=== PATIENT | male | born 1985 | race Two or more races ===

== ENCOUNTER 2016-09-26 16:29 | Emergency (ER) | payer OTHER ==
[2016-09-26 16:44] VITALS: BP 205/142; PULSE 96; RESP 16; TEMP 98.1; O2SAT 92
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
--- NOTE | 2016-09-26 19:12 | DX ---
Left hip, 2 views Clinical indication: Trauma. Findings: Bony alignment of the pelvis and hips is normal. Joint space are well maintained. Lower kellie mbar spine is grossly unremarkable. No evidence of fracture or dislocation. Impression: Normal 2 views left hip.
--- NOTE | 2016-09-27 10:35 | DX ---
Cervical Spine (AP and Lateral) Clinical Indications: Trauma. Findings: Alignment is normal and there are no fractures. The intervertebral disks have normal heig ht and the cervical curvature is normal. There are no significant osteophytes. The bony spinal canal is normal in size. Impression: Normal.
== END 2016-09-26 18:57 | disposition home or self-care (01) ==
LOC: CED 16:29
DX: S16.1XXA Strain of muscle, fascia and tendon at neck level, initial encounter (principal); S70.02XA Contusion of left hip, initial encounter; R07.9 Chest pain, unspecified; V86.59XA Driver of other special all-terrain or other off-road motor vehicle injured in nontraffic accident, initial encounter
CPT/HCPCS: 71020-PO; 72040-PO; 73502-PO; 99214-PO; G0463-PO

== ENCOUNTER 2016-11-29 16:07 | Emergency (ER) | payer OTHER ==
[2016-11-29 16:19] VITALS: BP 173/116; PULSE 105; RESP 20; TEMP 97.7
[2016-11-29] MEDS ORDERED: ONDANSETRON DISINTEGRATING 4 MG TAB PO ONE (16:29)
[2016-11-29] MEDS ORDERED: LOPERAMIDE HCL 2 MG CAP PO ONE (16:30)
--- NOTE | 2016-11-29 16:34 | UCPHY ---
H & P Patient Type: New Chief Complaint Nursing Narrative: vomiting 8-9 times, multiple diarrhea, gas, bloated, epigastric pain since Sunday Time Seen by Provider: 11/29/16 16:24 HPI/ROS: CHIEF COMPLAINT: Vomiting and diarrhea HISTORY OF PRESENT ILLNESS: The patient is a 31-year-old man who comes to the Urgent Care complaining of diarrhea primarily. Also a couple of episodes of vomit today. He states that his diarrhea began yesterday at work. States that it is watery. He denies travel outside of the [facility]. He denies drinking unfiltered water. He has not had a fever. He denies abdominal pain. No blood in his stool or vomit. He is stable to urinate. He does not feel dehydrated. He has been trying to drink fluids. He does not have any history of abdominal surgery. REVIEW OF SYSTEMS: Constitutional: denies: chills, fever, recent illness, recent injury EENTM: denies: blurred vision, double vision, nose congestion Respiratory: denies: cough, shortness of breath Cardiac: denies: chest pain, irregular heart rate, lightheadedness, palpitations Gastrointestinal/Abdominal: See HPI Genitourinary: denies: dysuria, frequency, hematuria, pain Musculoskeletal: denies: joint pain, muscle pain Skin: denies: lesions, rash, jaundice, bruising Neurological: denies: headache, numbness, paresthesia, tingling, dizziness, weakness Hematologic/Lymphatic: denies: blood clots, easy bleeding, easy bruising Immunologic/allergic: denies: HIV/AIDS, transplant EXAM: GENERAL: Well-appearing, obese and in no acute distress. HEAD: Atraumatic, normocephalic. EYES: Pupils equal round and reactive to light, extraocular movements intact, sclera anicteric, conjunctiva are normal. ENT: TMs normal, nares patent, oropharynx clear without exudates. Moist mucous membranes. NECK: Normal range of motion, supple without lymphadenopathy or JVD. LUNGS: Breath sounds clear to auscultation bilaterally and equal. No wheezes rales or rhonchi. HEART: Regular rate and rhythm without murmurs, rubs or gallops. ABDOMEN: Soft, nontender, normoactive bowel sounds. No guarding, no rebound. No masses appreciated. BACK: No CVA tenderness, no spinal tenderness, step-offs or deformities EXTREMITIES: Normal range of motion, no pitting or edema. No clubbing or cyanosis. NEUROLOGICAL: Cranial nerves II through XII grossly intact. Normal speech, normal gait. 5/5 strength, normal movement in all extremities, normal sensation PSYCH: Normal mood, normal affect. SKIN: Warm, dry, normal turgor, no visible rashes or lesions. Source: Patient Exam Limitations: No limitations - Medical/Surgical History Hx Asthma: No Hx Chronic Respiratory Disease: No Hx Diabetes: No Hx Cardiac Disease: No Hx Renal Disease: No Hx Cirrhosis: No Hx Alcoholism: No Hx HIV/AIDS: No Hx Splenectomy or Spleen Trauma: No Other PMH: diabetes, htn - Family History Significant Family History: No pertinent family hx - Social History Smoking Status: Never smoked Alcohol Use: Sober Drug Use: None Constitutional: Initial Vital Signs Temperature (C) 36.5 C 11/29/16 16:16 Heart Rate 105 H 11/29/16 16:16 Respiratory Rate 20 11/29/16 16:16 Blood Pressure 173/116 H 11/29/16 16:16 O2 Delivery Mode Room Air Allergies/Adverse Reactions: No Known Allergies Allergy (Verified 09/26/16 16:32) Home Medications: Medication Instructions Recorded Lisinopril 11/29/16 Metformin HCl [Metformin 1000 mg] 11/29/16 Ondansetron Odt [Zofran Odt 4 mg 4 mg PO Q4 PRN #20 tab 11/29/16 (RX)] amLODIPine BESYLATE 11/29/16 Medical Decision Making ED Course/Re-evaluation: Patient is well appearing. His abdominal exam is benign. I will treat with Zofran and Imodium. We discussed natural course of gastroenteritis. We will observe for p.o. intake. 6:15 p.m. the patient is tolerating p.o.. He is eager to go home. He declines further workup or testing. Abdominal exam remains benign. I will give him prescription for Zofran. Encouraged hydration. Discussed indications for returning. Differential Diagnosis: Partial list of the Differential diagnosis considered include but were not limited to; gastritis, food poisoning, and although unlikely based on the history and physical exam, I also considered obstruction, appendicitis, diverticulitis, liver disease, kidney disease, biliary disease, Giardia. I discussed these differential diagnoses and the plan with the patient as well as the usual and expected course. The patient understands that the diagnosis is provisional and that in medicine we are not always correct and that further workup is often warranted. Usual and customary warnings were given. All of the patient's questions were answered. The patient was instructed to return to the emergency department should the symptoms at all worsen or return, otherwise to followup with the physician as we discussed. - Data Points Medications Given: Discontinued Medications Loperamide HCl (Imodium) 4 mg PO EDNOW ONE Stop: 11/29/16 16:31 Last Admin: 11/29/16 16:35 Dose: 4 mg Ondansetron HCl (Zofran Odt) 8 mg PO EDNOW ONE Stop: 11/29/16 16:30 Last Admin: 11/29/16 16:35 Dose: 8 mg Departure - Departure Disposition: Home, Routine, Self-Care Clinical Impression: Vomiting and diarrhea Condition: Fair Instructions: Acute Nausea and Vomiting (ED), Acute Diarrhea (ED) Referrals: Jasmin Willis MD [Medical Doctor] - As per Instructions Stand Alone Forms: Work Excuse Prescriptions: Ondansetron Odt [Zofran Odt 4 mg (RX)] 4 mg PO Q4 PRN #20 tab PRN Reason: Nausea & Vomiting - PQRS PQRS Measurement: Not applicable
== END 2016-11-29 18:24 | disposition home or self-care (01) ==
LOC: CED 16:07
DX: R11.10 Vomiting, unspecified (principal); R19.7 Diarrhea, unspecified; E11.9 Type 2 diabetes mellitus without complications; I10 Essential (primary) hypertension; E66.9 Obesity, unspecified
CPT/HCPCS: 99204-PO; G0463-PO

== ENCOUNTER 2017-12-26 19:49 | Emergency (ER) | payer OTHER ==
[2017-12-26] MEDS ORDERED: ACETAMINOPHEN 325 MG TAB PO ONE (20:27)
[2017-12-26] MEDS ORDERED: AZITHROMYCIN 250 MG TAB PO ONE (20:50)
[2017-12-26] MEDS ORDERED: ALBUTEROL INH PREPACK MDI TAKEHOME ONE (20:50)
--- NOTE | 2017-12-26 20:51 | EDPHY ---
H & P Time Seen by Provider: 12/26/17 20:09 HPI/ROS: This patient presents with sore throat 2 days duration moderate intensity associated with right ear pain mild intensity and cough also 2 days duration dry and hacking in nature. He reports low-grade subjective fevers associated with the symptoms. Family reports that and 2 children had influenza diagnosed 2 weeks ago. They have improved. Patient is accompanied by his and came here by private vehicle for evaluation of his symptoms. Patient also reports that he is not taking his lisinopril or amlodipine because he lost his health insurance when he lost his job. ROS: Constitutional: Low-grade fevers. No high fevers or chills. 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 No change in his hearing. No drainage from the ear. Neuro: No headache. No focal neuro symptoms. No recent vision changes. No confusion. Pulmonary: No hemoptysis. No respiratory distress. No pleuritic pain. Cardiovascular: No chest pain. No peripheral edema. : No flank pain. No hematuria. Integumentary: No skin rash or other complaints 10 point ROS is otherwise negative. 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 General Appearance: Alert, no distress. Eyes: Pupils equal and round no pallor or injection. ENT, Mouth: Mucous membranes moist. Mild posterior pharyngeal erythema. Hoarse voice reported is baseline for him with evidence of tracheostomy anteriorly in his neck. Ears: Right external canal and TM are clear left external canal and TM are clear. Respiratory: No rales or rhonchi. Faint expiratory wheeze when he coughs. Cardiovascular: Regular rate and rhythm. No murmur gallop or rub no peripheral edema. Gastrointestinal: Abdomen is soft and nontender, no masses, bowel sounds normal. Neurological: GCS 15. Cranial nerves 2-12 grossly intact. No focal deficits. Skin: Warm and dry, no rashes. Musculoskeletal: Neck is supple nontender. Extremities are symmetrical, full range of motion. Psychiatric: Mood and affect normal. DIFFERENTIAL DIAGNOSIS: After history and physical exam differential diagnosis was considered for essential hypertension-untreated, pharyngitis, bronchitis, doubt pneumonia Constitutional: Initial Vital Signs Temperature (C) 37.0 C 12/26/17 20:22 Heart Rate 93 12/26/17 20:22 Respiratory Rate 18 12/26/17 20:22 Blood Pressure 179/130 H 12/26/17 20:22 O2 Sat (%) 93 12/26/17 20:22 O2 Delivery Mode Room Air Allergies/Adverse Reactions: No Known Allergies Allergy (Verified 12/26/17 20:25) Home Medications: Medication Instructions Recorded Lisinopril 11/29/16 Metformin HCl [Metformin 1000 mg] 11/29/16 Ondansetron Odt [Zofran Odt 4 mg 4 mg PO Q4 PRN #20 tab 11/29/16 (RX)] amLODIPine BESYLATE 11/29/16 Azithromycin [Zithromax] 250 mg PO DAILY #4 tab 12/26/17 Lisinopril 5 mg PO DAILY #30 tablet 12/26/17 amLODIPine BESYLATE [Amlodipine 5 mg PO DAILY #30 tablet 12/26/17 Besylate] MDM/Departure - MDM Diagnostics: Studies: Rapid flu is negative Rapid strep is negative Medications Given: Discontinued Medications Acetaminophen (Tylenol) 975 mg PO EDNOW ONE Stop: 12/26/17 20:28 Last Admin: 12/26/17 20:34 Dose: 975 mg Albuterol Sulfate (Proventil Inh Prepack) 1 mdi TAKEHOME EDNOW ONE Stop: 12/26/17 20:51 Last Admin: 12/26/17 21:14 Dose: 1 mdi Azithromycin (Zithromax) 500 mg PO EDNOW ONE PRN Reason: Protocol Stop: 12/26/17 20:51 Last Admin: 12/26/17 21:12 Dose: 500 mg Clonidine (Catapres) 0.2 mg PO EDNOW ONE Stop: 12/26/17 20:28 Last Admin: 12/26/17 20:35 Dose: 0.2 mg ED Course/Re-evaluation: Clonidine 0.2 p. O. For his significant hypertension. We counseled regarding the importance of restarting his lisinopril and amlodipine tomorrow. We also stressed the importance of close follow-up. Tylenol for discomfort with some improvement Zithromax 500 mg p. O. Albuterol MDI home pack Discussion: Patient with untreated essential hypertension without evidence of end-organ injury tonight clinically. Pharyngitis and bronchitis per Lorin loop ruled out influenza. Rapid strep is also negative. However given diabetes with bronchitis will cover with a macrolide antibiotic. Counseled he and regarding this and again we counseled regarding the importance of treating his hypertension. Again no evidence of end-organ injury tonight. - Depart Disposition: Home, Routine, Self-Care Clinical Impression: Acute bronchitis Qualifiers: Bronchitis organism: unspecified organism Qualified Code(s): J20.9 - Acute bronchitis, unspecified Pharyngitis Qualifiers: Pharyngitis/tonsillitis etiology: unspecified etiology Qualified Code(s): J02.9 - Acute pharyngitis, unspecified Hypertension Qualifiers: Hypertension type: essential hypertension Qualified Code(s): I10 - Essential ( primary) hypertension Condition: Good Instructions: Acute Bronchitis (ED), Hypertension (ED) Additional Instructions: Diagnoses: 1. Acute bronchitis 2. Pharyngitis 3. Hypertension Plan: Restart your lisinopril and amlodipine Tylenol and/or ibuprofen if needed for throat pain ear pain Albuterol inhaler 2 puffs per 4 hr with spacer for cough, wheeze or shortness of breath Zithromax antibiotic Follow up with primary care physician for a recheck of her blood pressure symptom within the next 2-5 days Return for any significant worsening despite treatment plan Stand Alone Forms: Parent/Guardian Work Excuse, Work Excuse Prescriptions: amLODIPine BESYLATE [Amlodipine Besylate] 5 mg PO DAILY #30 tablet Azithromycin [Zithromax] 250 mg PO DAILY #4 tab Lisinopril 5 mg PO DAILY #30 tablet Referrals: NONE *PRIMARY CARE P,. [Primary Care Provider] - As per Instructions Matthieu Cordova MD [[facility] Primary Care Provider] - As per Instructions
[2017-12-26 21:33] VITALS: BP 152/125
== END 2017-12-26 21:23 | disposition home or self-care (01) ==
LOC: CED 19:49
DX: J02.9 Acute pharyngitis, unspecified (principal); J20.9 Acute bronchitis, unspecified; I10 Essential (primary) hypertension; E11.9 Type 2 diabetes mellitus without complications; Z79.84 Long term (current) use of oral hypoglycemic drugs
CPT/HCPCS: 87400-PO; 87880-PO

== ENCOUNTER 2018-10-07 01:48 | Emergency (ER) | payer OTHER ==
--- NOTE | 2018-10-07 01:54 | EDPHY ---
H & P Time Seen by Provider: 10/07/18 01:53 HPI/ROS: CHIEF COMPLAINT: Ill for 24 hr with nausea and vomiting with diarrhea, feeling weak in the knees, almost passed out HISTORY OF PRESENT ILLNESS: This is a 33-year-old male who was recently rediagnosed as diabetic. He had been on treatment but lost his insurance so he had had no treatment for approximately 18 months. He had new insurance as of the of this year thus he saw his family physician on approximately September 20 and was placed on metformin as his A1c was approximately 11. He does note that in the interim he has washed approximately 10 lb in the last 8 days, but has no particular explanation for that although he has been ill overnight. Specifically, he weighed himself this morning when in point of fact his illness started approximately 24 hr ago. Thus at the time he waited in he was already ill with the symptoms as noted below for approximately 8 hr. Beginning last night he started having episodes of nausea with inability to take in any fluids and vomiting. He is totally vomited approximately 8 times. No blood in this. However, the diarrhea is much more prominent with small squirts every 10-15 minutes in the last 24 hr he feels exhausted as not only does he feel weak when he gets up but he has been able to sleep. He has also felt somewhat near faint. Further, beginning this morning at around 9:00 a.m.. Some 18 hr ago he noted midline upper abdominal discomfort. He would characterizes that as steady and persistent without radiation to the back. He is not want to have dyspepsia or heartburn or GI distress illnesses or reflux. There was a time this past fall where he was taking a fair amount of Advil but that was several months ago-due to his bad back. He is particularly noted that he is not taking any Tylenol. Further, he has been exposed to influenza by way of his who was diagnosed in this [facility] ER on October 01. However, though he has had myalgias he has not had any cough. I have seen at a series of patient's this particular Influenza season who seemed to be more clinically compatible with norovirus. However as the influenza virus predominant strain has been H1 N1 there has been plenty of GI component for the some of these people. P: Not worse with movement or position Q: Achiness R: Location is in the upper abdomen from the xiphoid to the umbilicus and does not radiate, no involvement of the back, interscapular area, or chest S: Mild to moderate T: Steady without progression since 9:00 a.m. He did receive the seasonal influenza vaccine approximately 8 days ago. At that time he was seen by his PCP and noted to have an hemoglobin A1c of approximately 11 thus was started on metformin. During the 1st few days of that medication, approximately week ago, he had some diarrhea but by the end of the week he had formed stools as of 4 days ago. Travel: None Others: His spouse was diagnosed on on October 01 with influenza here in this ER: at that time she had headache characterized migraine Antibiotics: None Bad Food: None Bad Water: None Recent Surgery: None REVIEW OF SYSTEMS: Constitutional: No fever, no chills. Eyes: No discharge ENT: No sore throat. Cardiovascular: No chest pain, no palpitations. Respiratory: No cough, shortness of breath, or wheezing. Gastrointestinal: See above Genitourinary: No hematuria or frequency. Musculoskeletal: Moderate body aches Skin: No rashes. Neurological: No headache. A 10 system review of systems was performed and is negative except for the noted findings in the HPI. 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 Afebrile, temp on my reading is 37.1 p.o.. Normal phonation. No respiratory distress. Eyes: Pupils equal and round no pallor or injection. No icterus ENT, Mouth: Mucous membranes moderately dry Pharynx without erythema or exudate. TM Clear. Neck: No adenopathy. Supple. No JVD. Trachea in midline. Respiratory: There are no retractions, lungs are clear to auscultation. Chest wall: Nontender to palpation. No crepitus. Cardiovascular: Regular rate and rhythm, without murmur. Abdomen: Soft, mildly tender in the midline in the hypogastric area. No liver edge palpable. No right upper quadrant tenderness to suggest cholecystitis. No right lower quadrant tenderness to suggest appendicitis. No left lower quadrant tenderness to suggest diverticulitis Neurological: Ox3. No motor weakness. Sensation intact. Gait nl. Skin: Warm and dry, no rashes. Musculoskeletal: No joint swelling. Extremities: No edema. Homans sign negative. No cords. Psychiatric: Normal affect. Patient is oriented X 3. There is no agitation Constitutional: Initial Vital Signs Temperature (C) 37.1 C 10/07/18 01:58 Heart Rate 112 H 10/07/18 01:58 Respiratory Rate 16 10/07/18 01:58 Blood Pressure 161/120 H 10/07/18 01:58 O2 Sat (%) 93 10/07/18 01:58 O2 Delivery Mode Room Air Allergies/Adverse Reactions: No Known Allergies Allergy (Verified 10/07/18 01:56) Home Medications: Medication Instructions Recorded Lisinopril 10 mg PO DAILY #14 tablet 08/11/18 Metformin HCl 10/07/18 Ondansetron Odt [Zofran Odt 4 mg 4 mg PO Q4 PRN #4 tab 10/07/18 (*)] Oseltamivir Phosphate [Tamiflu] 75 mg PO BID 5 Days capsule 10/07/18 Medical Decision Making ED Course/Re-evaluation: The patient remained tachycardic though he is afebrile. He is clinically dehydrated and has symptoms to compatible with volume depletion thus he was given a titration of Zofran along with 2 L of normal saline. Overa period of time he was thereby given a dose of p.o. Maalox Laboratory studies included a basic, and a lipase: Normal electrolytes Normal renal function, though BUN is now up to 17 CO2 reduced down to 18 Normal anion gap borderline at 14 Thus, additional laboratories were evaluated to include: Normal lipase Normal beta hydroxybutyrate Minimally elevated LFTs while here: he had no vomiting, reduced nausea, markedly reduced upper abdominal discomfort and only 4 trip to the [place] for the diarrhea. Abdomen less tender. Differential Diagnosis: Differential diagnosis includes, but is not limited to: Gastroenteritis, dehydration, diverticulitis, hepatitis, pancreatitis, renal colic, kidney stones, ureterolithiasis, cholecystitis, appendicitis, gastritis, mesenteric adenitis, food poisoning, bacterial dysentery. - Data Points Laboratory Results: Laboratory Results 10/07/18 03:00 10/07/18 10/07/18 10/07/18 03:00 03:00 02:52 WBC 8.63 10^3/uL 10^3/uL (3.80-9.50) RBC 6.27 10^6/uL 10^6/uL (4.40-6.38) Hgb 18.0 g/dL H g/dL (13.7-17.5) Hct 52.4 % H % (40.0-51.0) MCV 83.6 fL fL (81.5-99.8) MCH 28.7 pg pg (27.9-34.1) MCHC 34.4 g/dL g/dL (32.4-36.7) RDW 13.3 % % (11.5-15.2) Plt Count 177 10^3/uL 10^3/uL (150-400) MPV 12.7 fL H fL (8.7-11.7) Neut % (Auto) 77.3 % H % (39.3-74.2) Lymph % (Auto) 14.3 % L % (15.0-45.0) Bollinger % (Auto) 6.5 % % (4.5-13.0) Eos % (Auto) 1.4 % % (0.6-7.6) Baso % (Auto) 0.2 % L % (0.3-1.7) Nucleat RBC Rel Count 0.0 % % (0.0-0.2) Absolute Neuts (auto) 6.67 10^3/uL H 10^3/uL (1.70-6.50) Absolute Lymphs (auto) 1.23 10^3/uL 10^3/uL (1.00-3.00) Absolute Monos (auto) 0.56 10^3/uL 10^3/uL (0.30-0.80) Absolute Eos (auto) 0.12 10^3/uL 10^3/uL (0.03-0.40) Absolute Basos (auto) 0.02 10^3/uL 10^3/uL (0.02-0.10) Absolute Nucleated RBC 0.00 10^3/uL 10^3/uL (0-0.01) Immature Gran % 0.3 % % (0.0-1.1) Immature Gran # 0.03 10^3/uL 10^3/uL (0.00-0.10) POC Sodium 138 mEq/L mEq/L (135-145) POC Potassium 4.7 mEq/L mEq/L (3.3-5.0) POC Chloride 106.0 mEq/L mEq/L (97-110) POC Total CO2 18 mEq/L L mEq/L (22-31) POC BUN 17 mg/dL mg/dL (7-23) POC Creatinine 1.1 mg/dL mg/dL (0.7-1.3) POC Glucose 289 mg/dL H mg/dL (70-100) POC Calcium 10.4 mg/dL mg/dL (8.5-10.4) Total Bilirubin 0.8 mg/dL mg/dL (0.1-1.4) Conjugated Bilirubin 0.4 mg/dL mg/dL (0.0-0.5) Unconjugated Bilirubin 0.4 mg/dL mg/dL (0.0-1.1) AST 44 IU/L IU/L (17-59) ALT 75 IU/L H IU/L (21-72) Alkaline Phosphatase 133 IU/L H IU/L (38-126) Total Protein 8.0 g/dL g/dL (6.3-8.2) Albumin 4.4 g/dL g/dL (3.5-5.0) Lipase 126 IU/L IU/L (23-300) Beta-Hydroxybutyrate 0.14 mmol/L mmol/L (0.02-0.27) Medications Given: Discontinued Medications Al Hydroxide/Mg Hydroxide (Maalox Susp) 30 ml PO EDNOW ONE Stop: 10/07/18 03:20 Last Admin: 10/07/18 05:18 Dose: Not Given Sodium Chloride (Ns) 2,000 mls @ 0 mls/hr IV EDNOW ONE; Wide Open PRN Reason: Protocol Stop: 10/07/18 02:49 Last Admin: 10/07/18 03:00 Dose: Not Given Sodium Chloride (Ns) 1,000 mls @ 0 mls/hr IV EDNOW ONE; As Directed PRN Reason: Protocol Stop: 10/07/18 02:50 Last Admin: 10/07/18 02:55 Dose: 1,000 mls Ondansetron HCl (Zofran) 4 mg IVP EDNOW ONE Stop: 10/07/18 02:49 Last Admin: 10/07/18 02:55 Dose: 4 mg Ondansetron HCl (Zofran) 4 mg IVP EDNOW ONE Stop: 10/07/18 03:28 Last Admin: 10/07/18 03:27 Dose: 4 mg Point of Care Test Results: Chemistry 10/07/18 02:52 POC Sodium 138 mEq/L mEq/L (135-145) POC Potassium 4.7 mEq/L mEq/L (3.3-5.0) POC Chloride 106.0 mEq/L mEq/L (97-110) POC Total CO2 18 mEq/L L mEq/L (22-31) POC BUN 17 mg/dL mg/dL (7-23) POC Creatinine 1.1 mg/dL mg/dL (0.7-1.3) POC Glucose 289 mg/dL H mg/dL (70-100) POC Calcium 10.4 mg/dL mg/dL (8.5-10.4) Departure - Departure Clinical Impression: Influenza, Viral syndrome, Dehydration Condition: Good Instructions: Oseltamivir (By mouth), Dehydration (ED), Influenza (ED), Acute Nausea and Vomiting (ED) Additional Instructions: For the dehydration: Gatorade is a good idea, in particular, the low-calorie. Zofran for the nausea Your symptoms should be improving throughout the day an UR to introduce food such as toast or crackers by noon today. The dinner should be a soft diet such as a eggs or soup If you are unable to advance her diet as outlined above, you need to return Continue metformin Add Tamiflu for the influenza Referrals: Patient,NotPresent [Primary Care Provider] - As per Instructions Prescriptions: Ondansetron Odt [Zofran Odt 4 mg (*)] 4 mg PO Q4 PRN #4 tab PRN Reason: Nausea or vomiting Oseltamivir Phosphate [Tamiflu] 75 mg PO BID 5 Days capsule
[2018-10-07] MEDS ORDERED: ONDANSETRON 4 MG/2 ML VIAL IVP ONE ×2 (02:48→03:27)
[2018-10-07] MEDS ORDERED: NS 2,000 ML IV ONE (02:48)
[2018-10-07] MEDS ORDERED: NS 1,000 ML IV ONE (02:49)
[2018-10-07] MEDS ORDERED: MAG HYDROX/AL HYDROX/SIMETH 30 ML UDCUP PO ONE (03:19)
[2018-10-07] MEDS ORDERED: ONDANSETRON 4 MG/2 ML VIAL ONE (03:23)
[2018-10-07 04:11] LABS: PLATELET COUNT 177 10^3/uL (150-400)
[2018-10-07 04:49] VITALS: BP 137/87
[2018-10-07] MEDS ORDERED: OSELTAMIVIR PHOSPHATE 75 MG CAP PO ONE (05:18)
== END 2018-10-07 05:35 | disposition home or self-care (01) ==
LOC: CED 01:48
DX: J10.01 Influenza due to other identified influenza virus with the same other identified influenza virus pneumonia (principal); E86.0 Dehydration; E11.9 Type 2 diabetes mellitus without complications; Z79.899 Other long term (current) drug therapy; I10 Essential (primary) hypertension
CPT/HCPCS: 80048-ER; 80076-ER; 96361-ER; 96374-ER; 96376-ER; 99284-ER; J2405